=== PATIENT | female | born 1945 | race Caucasian/White ===

== ENCOUNTER 2019-07-31 14:15 | Inpatient (IN) | payer OTHER, MEDICARE | END 2019-08-01 13:04 | disposition home or self-care (01) | LOC: J4S 08-01 01:20 → JER 14:15 → JERBED 17:30 ==

== ENCOUNTER 2022-05-14 05:59 | Inpatient (IN) | payer OTHER, MEDICARE ==
[2022-05-08 15:33] VITALS: BMI 27.8
[2022-05-14] MEDS ORDERED: CELECOXIB 200 MG CAPSULE ONE (06:41)
[2022-05-14] MEDS ORDERED: VANCOMYCIN 1,000 MG VIAL (RESTRICTED TO ID ONLY) ONE (07:12)
[2022-05-14] MEDS ORDERED: ceFAZolin SODIUM 1 GM VIAL ONE ×3 (07:12→14:43)
[2022-05-14] MEDS ORDERED: MIDAZOLAM HCL 2 MG/2 ML SINGLE DOSE VIAL ONE ×2 (07:30)
[2022-05-14] MEDS ORDERED: DEXAMETHASONE SOD PHOSPHATE 4 MG/1 ML VIAL ONE (07:32)
[2022-05-14] MEDS ORDERED: ONDANSETRON 4 MG/2 ML VIAL ONE (07:32)
[2022-05-14] MEDS ORDERED: TRANEXAMIC ACID 1000 MG/10 ML VIAL ONE (07:32)
[2022-05-14] MEDS ORDERED: BUPIVACAINE HCL 100 ML ONE (07:33)
[2022-05-14] MEDS ORDERED: BUPIVACAINE LIPOSOME/PF (EXPAREL) 266 MG/20 ML VIAL ONE (07:34)
[2022-05-14] MEDS ORDERED: MAG HYDROX/AL HYDROX/SIMETH 30 ML UNIT-DOSE CUP PO PRN (07:52)
[2022-05-14] MEDS ORDERED: ONDANSETRON 4 MG/2 ML VIAL IVPUSH PRN (07:52)
[2022-05-14] MEDS ORDERED: predniSONE 10 MG TABLET (UD) PO SCH (08:00)
[2022-05-14] MEDS ORDERED: LACTATED RINGERS SOLUTION 1,000 ML IV SCH ×2 (08:00→11:45)
[2022-05-14] MEDS ORDERED: FAMOTIDINE 20 MG TABLET PO SCH (08:00)
[2022-05-14] MEDS ORDERED: PROPOFOL 20 ML ONE ×3 (08:18→09:37)
[2022-05-14] MEDS ORDERED: VANCOMYCIN 1,000 MG VIAL (RESTRICTED TO ID ONLY) IVPB ONE (09:34)
[2022-05-14] MEDS ORDERED: PATIENT'S OWN MEDICATION (NON-FORMULARY) (Cetirizine Hcl [Cetirizine Hcl] 10 MG Tablet) PO SCH (10:00)
[2022-05-14] MEDS ORDERED: PATIENT'S OWN MEDICATION (NON-FORMULARY) (Losartan/Hydrochlorothiazide [Losartan-Hctz 100- PO SCH (10:00)
[2022-05-14] MEDS ORDERED: oxyCODONE HCL 5 MG TABLET PO PRN (11:36)
[2022-05-14] MEDS: PANTOPRAZOLE 40 MG TABLET PO SCH (13:14)
[2022-05-14] MEDS: MULTIVITAMINS (DAILY MVI) TABLET (FP) PO SCH (13:14)
[2022-05-14] MEDS: SENNOSIDES/DOCUSATE COMBO (SENNA PLUS) TABLET (UD) PO SCH ×2 (13:53→21:13)
[2022-05-14] MEDS ORDERED: DEXTROSE 5%-WATER - 50 ML IVPB ONE (14:44)
[2022-05-14] MEDS: ACETAMINOPHEN 500 MG TABLET (FP) PO SCH ×2 (15:37→20:28)
[2022-05-14] MEDS: CEFAZOLIN 2 GM in DEXTROSE 5%-WATER - 50 ML IVPB SCH (15:38)
[2022-05-14] MEDS: oxyCODONE HCL 5 MG TABLET PO PRN (20:28)
[2022-05-14] MEDS: oxyCODONE HCL 10 MG SUSTAINED ACTING TABLET PO SCH (21:13)
[2022-05-14] MEDS ORDERED: MONTELUKAST NA 10 MG TABLET PO SCH (22:00)
[2022-05-15] MEDS ORDERED: DEXTROSE 5%-WATER - 50 ML IVPB ONE (00:43)
[2022-05-15] MEDS ORDERED: ceFAZolin SODIUM 1 GM VIAL ONE (00:43)
[2022-05-15] MEDS: CEFAZOLIN 2 GM in DEXTROSE 5%-WATER - 50 ML IVPB SCH (00:50)
[2022-05-15] MEDS: ACETAMINOPHEN 500 MG TABLET (FP) PO SCH ×2 (06:47→15:41)
[2022-05-15] MEDS ORDERED: LEVOTHYROXINE NA 100 MCG TABLET (FP) PO SCH (07:00)
[2022-05-15] MEDS ORDERED: ASPIRIN 325 MG TABLET PO SCH (08:00)
[2022-05-15] MEDS: oxyCODONE HCL 5 MG TABLET PO PRN ×2 (08:05→14:56)
[2022-05-15 08:14] LABS: HEMATOCRIT 29.8 % (32.4-45.2); HEMOGLOBIN 10.4 G/dL (10.7-15.3); MCHC 34.8 g/dl (32.0-36.0); MEAN CELL VOLUME 97.6 fl (80-96); MEAN PLT VOLUME 8.3 fl (7.5-11.1); PLATELET COUNT 325.1 10^3/uL (134-434); RBC 3.05 10^6/uL (3.60-5.2); RDW 12.9 % (11.6-15.6); WHITE BLOOD COUNT 10.6 10^3/uL (4.0-10.8)
[2022-05-15] MEDS: oxyCODONE HCL 10 MG SUSTAINED ACTING TABLET PO SCH (09:04)
[2022-05-15] MEDS: SENNOSIDES/DOCUSATE COMBO (SENNA PLUS) TABLET (UD) PO SCH (09:05)
[2022-05-15] MEDS: MULTIVITAMINS (DAILY MVI) TABLET (FP) PO SCH (09:05)
[2022-05-15] MEDS ORDERED: LOSARTAN 50MG/HCTZ 12.5MG 1 TAB PO SCH (10:00)
[2022-05-15] MEDS ORDERED: LORATADINE 10 MG TABLET PO SCH (10:00)
[2022-05-15] MEDS ORDERED: LOSARTAN POTASSIUM 50 MG TABLET PO SCH (10:00)
[2022-05-15] MEDS: PANTOPRAZOLE 40 MG TABLET PO SCH (11:35)
[2022-05-15 14:01] VITALS: BP 91/45; PULSE 65; TEMP 98.1
== END 2022-05-15 16:04 | disposition home health service (06) | DRG 470 ==
LOC: FM/S 05:59
PROVIDERS: ADMIT Orthopaedic Surgery; ATTEND Orthopaedic Surgery
PROC: 8E0Y0CZ Robotic Assisted Procedure of Lower Extremity, Open Approach (ICD-10-PCS; 2022-05-14)
PROC: 0SRC0J9 Replacement of Right Knee Joint with Synthetic Substitute, Cemented, Open Approach (ICD-10-PCS; principal; 2022-05-14 08:29)
DX: M17.11 Unilateral primary osteoarthritis, right knee (principal); I10 Essential (primary) hypertension; G30.9 Alzheimer's disease, unspecified; F02.80 Dementia in other diseases classified elsewhere, unspecified severity, without behavioral disturbance, psychotic disturbance, mood disturbance, and anxiety; M60.9 Myositis, unspecified; F17.200 Nicotine dependence, unspecified, uncomplicated; J45.909 Unspecified asthma, uncomplicated; Z85.51 Personal history of malignant neoplasm of bladder
CPT/HCPCS: 36415; 73560-TC-RT-FY; 85027; 94760; 97010-GP; 97116-GP; 97162-GP; C9803-CS; U0003; U0005